=== PATIENT | female | born 1950 | race Caucasian/White ===

== ENCOUNTER 2021-07-03 19:11 | Observation (INO) | payer MEDICARE ==
[~2021-07-03] VITALS: Ht 162.6 cm; Wt 93.0 kg
[2021-07-03 20:09] LABS: BASOPHILS % (AUTO) 1.4 % (0.0-5.0); EOSINOPHILS % (AUTO) 4.2 % (0.0-8.0); HEMATOCRIT 23.6 % (36-48); LYMPHOCYTES % (AUTO) 29.3 % (21.0-51.0); MEAN CORPUSCULAR HEMOGLOBIN 26.4 pg (27.0-33.0); MEAN CORPUSCULAR HGB CONC 29.2 g/dL (32.0-36.0); MEAN CORPUSCULAR VOLUME 90.4 fL (79-99); MONOCYTES % (AUTO) 13.9 % (3.0-13.0); NEUTROPHILS % (AUTO) 50.2 % (40.0-77.0); PLATELET COUNT (AUTO) 281 K/uL (130-400); RED BLOOD CELL COUNT(AUTO) 2.61 MIL/uL (4.00-5.50); RED CELL DISTRIBUTION WIDTH 17.3 % (11.0-15.5); WHITE BLOOD COUNT (AUTO) 2.9 K/uL (4.8-10.8)
[2021-07-03 20:22] LABS: CREATININE 1.2 mg/dL (0.5-1.5); POTASSIUM 3.6 mmol/L (3.5-5.1)
[2021-07-03 20:26] LABS: ALBUMIN 2.1 g/dL (3.5-5.0); BILIRUBIN,TOTAL 0.6 mg/dL (0.2-1.0); TOTAL PROTEIN, SERUM 5.6 g/dL (6.0-8.3)
[2021-07-03 21:03] LABS: BAND NEUTROPHILS % (MANUAL) 5 % (0-2); BASOPHILS % (MANUAL) 1 % (0-2); EOSINOPHILS % (MANUAL) 6 % (1-6); LYMPHOCYTES % (MANUAL) 16 % (22-44); MAN.DIFF COMMENT-IMPRESSION MANUAL DIFFERENTIAL; MONOCYTES % (MANUAL) 10 % (2-9); REACTIVE LYMPHOCYTES 6 % (0-0); SEGMENTED NEUTROPHILS % 56 % (40-70)
[2021-07-03] MEDS ORDERED: ACETAMINOPHEN 325 MG TAB ONE (21:34)
[2021-07-04] MEDS ORDERED: 0.9% NACL 250ML 250 ML ONE (01:47)
[2021-07-04 02:33] VITALS: BP 111/54
[2021-07-04 03:45] VITALS: BP 120/64
[2021-07-04 08:00] VITALS: BP 110/64
[2021-07-04 08:51] LABS: HEMATOCRIT 29.2 % (36-48)
[2021-07-04 12:00] VITALS: BP 106/69
== END 2021-07-04 13:30 | disposition home or self-care (01) ==
LOC: EDH 19:11 → EDSEX 19:11 → EDHIP 19:19 → 3BH 07-04 01:42
PROVIDERS: ADMIT Internal Medicine Hematology & Oncology; ATTEND Internal Medicine Hematology & Oncology
DX: L03.115 Cellulitis of right lower limb (principal); D64.9 Anemia, unspecified; M06.9 Rheumatoid arthritis, unspecified; M10.9 Gout, unspecified; M19.90 Unspecified osteoarthritis, unspecified site; Z86.73 Personal history of transient ischemic attack (TIA), and cerebral infarction without residual deficits; Z96.641 Presence of right artificial hip joint; Z96.651 Presence of right artificial knee joint
CPT/HCPCS: 36415 ×2; 36430 ×2; 80053; 85014; 85018; 85025; 86850; 86900; 86901; 86923; 87040 ×2; 99284; G0378 ×15; J7050; P9016 ×2

== ENCOUNTER → 2025-03-28 | Outpatient (CLI) | payer OTHER ==
--- NOTE | 2025-03-28 22:06 | HMCIMG ---
EXAM: XR Left Knee, 3 Views. CLINICAL HISTORY: Pain in left knee. COMPARISON: None provided. FINDINGS: BONES: Femoral osteoarthritic changes. No acute fracture or focal osseous lesion. JOINTS: No dislocation. The joint spaces are normal. SOFT TISSUES: The soft tissues are unremarkable. IMPRESSION: 1. Femoral osteoarthritic changes. /[place]
--- NOTE | 2025-03-29 05:02 | HMCIMG ---
EXAM: CR Lumbar Spine, 2 views CLINICAL HISTORY: Pain. COMPARISON: None provided. FINDINGS: Grade 1 degenerative anterolisthesis of L4 on L5. Mild osteopenia. Moderate spondylosis and degenerative disc space narrowing, most pronounced at L4-L5. Normal vertebral body heights. No acute fracture. Soft tissues are within normal limits. Partially visualized right hip joint replacement implant. IMPRESSION: No acute bony abnormality is evident. Grade 1 degenerative anterolisthesis of L4 on L5. Mild osteopenia. Moderate spondylosis and degenerative disc space narrowing, most pronounced at L4-L5. /[place]
== END | disposition home or self-care (01) ==
LOC: RAH 08:25
PROVIDERS: ATTEND Physical Medicine & Rehabilitation
DX: M47.816 Spondylosis without myelopathy or radiculopathy, lumbar region (principal); M48.061 Spinal stenosis, lumbar region without neurogenic claudication; M51.360 Other intervertebral disc degeneration, lumbar region with discogenic back pain only; M43.16 Spondylolisthesis, lumbar region; M17.12 Unilateral primary osteoarthritis, left knee; M85.88 Other specified disorders of bone density and structure, other site; M25.562 Pain in left knee; M41.9 Scoliosis, unspecified
CPT/HCPCS: 72100; 73562